=== PATIENT | male | born 1950 | race Caucasian/White ===

== ENCOUNTER 2022-11-25 21:40 | Emergency (ER) | payer MEDICARE, SELFPAY ==
--- NOTE | ~2022-11-25 | XR_ITS ---
EXAMINATION: XR hip RT 2V w AP pelvis DATE: 11/25/2022 22:01 INDICATION: Right hip pain. Fall. TECHNIQUE: An anteroposterior view of the pelvis and 2 views of right hip were obtained. COMPARISON: None. FINDINGS: Bone alignment is normal. No fracture. There is mild osteoarthritis of the hips. There is a t least mild lumbar spondylosis. IMPRESSION: 1. Mild osteoarthritis of the hips. Reviewed, dictated and finalized at location E.
--- NOTE | ~2022-11-25 | US_ITS ---
EXAMINATION: US venous doppler LE RT DATE: 11/25/2022 22:43 INDICATION: Right lower limb pain. TECHNIQUE: Grayscale ultrasound images without and with compression and Doppler ultrasound images of the right lower extremity veins were obtained. COMPARISON: None. FINDINGS: The visualized portions of right common femoral vein, profunda (deep) femoral vein, femoral vein, pop liteal vein, peroneal veins, posterior tibial veins, and greater saphenous vein outflow are patent. IMPRESSION: 1. No deep venous thrombosis. Reviewed, dictated and finalized at location E.
[2022-11-25 21:36] VITALS: BP 146/77; PULSE 109; RESP 21; TEMP 37.2; O2SAT 96
--- NOTE | 2022-11-25 21:52 | ED.EXTPRO ---
HPI - Extremity Problem General Chief complaint: Extremity Problem,Nontraumatic Stated complaint: hip pain History of Present Illness HPI Narrative: 72-year-old male with a history of hypertension, hyperlipidemia, and total blindness reports for evaluation for right hip pain since mid afternoon yesterday. Patient reports the pain in his right hip and proximal thigh and also is reporting pain in his calf that has been there for a while . He denies recent trauma or injury to his hip. States he was just sitting there when the pain started yesterday. He normally ambulates without difficulty and states he is able to ambulate but it is just now extremely painful. He denies recent fever, vomiting, abdominal pain, dysuria or hematuria, back pain. Patient reports he has known osteoarthritis in his hips and knees and at times they cause him pain. Related Data Allergies Allergy/AdvReac Type Severity Reaction Status Date / Time No Known Allergies Allergy Verified 11/25/22 22:36 Review of Systems Review of Systems: CONSTITUTIONAL: Denies fever, chills EYES: Denies visual changes, redness, or discharge. ENT: Denies rhinorrhea, congestion, sore throat, or otalgia. CARDIOVASCULAR: Denies chest pain, palpitations, or edema. RESPIRATORY: Denies cough or dyspnea. GASTROINTESTINAL: Denies abdominal pain, nausea, vomiting, or diarrhea. GENITOURINARY: Denies dysuria or hematuria. SKIN: Denies rash or itching. MUSCULOSKELETAL: See HPI NEUROLOGIC: Denies headache, numbness, dizziness, or weakness. PSYCHIATRIC: Denies anxiety or depression. Exam Narrative: GENERAL: Well-appearing, in no acute distress. Patient resting comfortably in exam bed. He is pleasant and conversational. HEAD: Normocephalic EYES: PERRLA ENT: Nares clear. Mucous membranes moist. Oropharynx without tonsillar hypertrophy exudate or other lesions. NECK: Supple. CHEST: No respiratory distress. Clear to auscultation, no adventitious breath sounds. HEART: Regular rate and rhythm. No murmur heard. Normal peripheral pulses. ABDOMEN: Soft, nontender, normal active bowel sounds. EXTREMITIES: Tenderness over the right hip and proximal thigh. Tenderness over the right calf, positive Homans. No edema. No warmth, erythema or overlying skin changes. Full range of motion of lower extremity. DP pulse 2+. Sensation intact. SKIN: Warm, dry, no rash. NEURO: No focal deficits. Alert and oriented x3. PSYCH: Normal mood and affect. Course Vital Signs Vital signs: Vital Signs Temperature 99 F 11/25/22 21:36 Pulse Rate 109 H 11/25/22 21:36 Respiratory Rate 21 H 11/25/22 21:36 Blood Pressure 146/77 H 11/25/22 21:36 Pulse Oximetry 96 11/25/22 21:36 Oxygen Delivery Room Air 11/25/22 21:36 Temperature 99 F 11/25/22 21:36 Pulse Rate 103 H 11/25/22 22:30 Respiratory Rate 16 11/25/22 22:30 Blood Pressure 168/92 H 11/25/22 22:30 Pulse Oximetry 98 11/25/22 22:30 Oxygen Delivery Room Air 11/25/22 21:36 MDM - Extremity (Nontraumatic) MDM Narrative Medical decision making narrative: 72-year-old male with a history of hypertension, hyperlipidemia, and total blindness reports for evaluation for right hip pain since mid afternoon yesterday. No trauma or injury. Patient is well-appearing on exam. He does have tenderness to the hip, proximal thigh and calf. No edema to lower extremity, no warmth to hip or lower extremity, no overlying skin changes including ecchymosis or erythema. He has full range of motion of his hip and is neurovascularly intact. Initial vitals reveal elevated blood pressure, tachycardia 109 and tachypnea of 21. Labs obtained with mild leukocytosis of 12.5. Chemistry significant for potassium of 3.3 which were orally repleted. Magnesium normal. BUN is elevated to 31, creatinine stable at 1. BUN elevation may be secondary to dehydration, patient received a liter of fluids. X-ray of the hip shows mild osteoarthritis of the
[2022-11-25 22:00] VITALS: PULSE 111; RESP 18; O2SAT 98
[2022-11-25 22:30] VITALS: BP 168/92; PULSE 103; RESP 16; O2SAT 98
[2022-11-25] MEDS: ACETAMINOPHEN 325 MG TABLET 650 MG PO (22:37)
[2022-11-25 22:55] LABS: Basophils Absolute Auto 0.1 K/mm3 (0.0-0.1); Basophils Percent Auto 0.7 % (0.2-1.2); Eosinophils Absolute Auto 0.1 K/mm3 (0-0.3); Eosinophils Percent Auto 0.4 % (0-4.4); Hematocrit 43.4 % (42.0-52.0); Hemoglobin 14.5 g/dL (14.0-18.0); Immature Granulocyte Absolute 0.04 K/mm3 (0.00-0.031); Immature Granulocyte Percent A 0.3 % (0-0.5); Lymphocytes Absolute Auto 1.83 K/mm3 (0.9-3.2); Lymphocytes Percent Auto 14.7 % (18.3-44.2); Mean Corpuscular HGB Conc 33.4 g/dl (32-36); Mean Corpuscular Hemoglobin 28.7 pg (26-34); Mean Corpuscular Volume 85.9 fl (80-100); Mean Platelet Volume 9.8 fl (7.4-10.4); Monocytes Percent Auto 8.1 % (2.6-8.5); Neutrophils Absolute Auto 9.5 K/mm3 (1.3-6.7); Neutrophils Percent Auto 75.8 % (45.5-73.1); Platelet Count Result 358 k/mm3 (150-375); Red Blood Count 5.05 M/mm3 (4.6-6.20); Red Cell Distribution Width 13.8 % (11.5-14.5); White Blood Count 12.5 K/mm3 (4.5-10.0)
[2022-11-25 23:06] LABS: Anion Gap 10 mmol/L (8-16); Blood Urea Nitrogen 31 mg/dL (9-20); Calcium 9.8 mg/dL (8.4-10.2); Carbon Dioxide 27 mmol/L (22-30); Chloride 104 mmol/L (98-107); Estimated CRCL calculation 66 ml/min; Estimated Glomerular Filt Rate > 60; Glucose 124 mg/dL (65-110); Potassium 3.3 mmol/L (3.4-5.0); Sodium 141 mmol/L (137-145)
[2022-11-25 23:19] LABS: INR 1.1; Prothrombin Time 14.2 Seconds (11.1-14.7)
[2022-11-25 23:20] LABS: Partial Thromboplastin Time 28.5 SECONDS (22.3-36.8)
[2022-11-25 23:47] LABS: Magnesium 1.8 mg/dL (1.6-2.3)
[2022-11-26] MEDS: POTASSIUM CHLORIDE 20 MEQ PACKET (FOR LIQUID) PO (00:20)
[2022-11-26] MEDS: SODIUM CHLORIDE 0.9% IV 1,000 ML 999 ML IV CONT (00:20)
[2022-11-26 02:20] VITALS: BP 141/81; PULSE 99; RESP 16; O2SAT 98
== END 2022-11-26 02:21 | disposition home or self-care (01) ==
PROVIDERS: Emergency Provider Physician Assistant; PCP Internal Medicine Infectious Disease
DX: M25.551 Pain in right hip (principal); I10 Essential (primary) hypertension; E78.5 Hyperlipidemia, unspecified; M16.0 Bilateral primary osteoarthritis of hip; M17.0 Bilateral primary osteoarthritis of knee; H54.3 Unqualified visual loss, both eyes; M79.661 Pain in right lower leg; M79.651 Pain in right thigh
CPT/HCPCS: 36415; 73502; 80048; 83735; 85025; 85610; 85730; 93971; 99283; 99284; A9270; J7030